=== PATIENT | female | born 1985 | race Caucasian/White ===

== ENCOUNTER 2016-06-27 10:08 | Emergency (ER) | payer SELFPAY ==
[2016-06-27] MEDS ORDERED: CYCLOBENZAPRINE HCL 10 MG TABLET PO ONE (10:20)
[2016-06-27] MEDS ORDERED: KETOROLAC TROMETHAMINE 60 MG/2 ML VIAL IM ONE ×2 (10:20→10:27)
[2016-06-27] MEDS ORDERED: CYCLOBENZAPRINE HCL 10 MG TABLET ONE (10:28)
--- NOTE | 2016-06-27 10:36 | ERNOTE ---
Back Pain ER HPI Date of Service: 06/27/16 Presenting Symptoms: injury/pain to back, hx chronic back pain Time Seen by Provider: 06/27/16 10:18 Source: patient Exam Limitations: no limitations Immunizations: IMMUNIZATION HX Immunizations Up to Date Yes History of Influenza Vaccine No Hx Pneumococcal Vaccination No Allergies/Adverse Reactions: Allergies No Known Allergies Allergy (Verified 06/27/16 10:22) Home Medications: HOME MEDICATIONS Cyclobenzaprine HCl [Flexeril] 10 mg PO TID PRN #30 tab 06/27/16 [Last Taken Unknown] Naproxen [Naprosyn] 500 mg PO BID PRN #60 tab 06/27/16 [Last Taken Unknown] Narrative: Pt. comes in with c/o R back, hip and leg pain with RLE tingling and occasional numbness. Pt. denies any SOB or CP, incontinence of bowel or bladder. Pt. states that she has been seeing a chiropractor for this for months and has also been taking aspirin since her chiropractor told her to switch a month or so ago from naproxen after an exacerbation of sciatica. Review of Systems - Review of Systems Constitutional: Present: no symptoms reported. Absent: fever, chills, weakness , fatigue, malaise EYE: Present: no symptoms reported ENT: Present: no symptoms reported Respiratory: Present: no symptoms reported. Absent: shortness of breath, cough , wheezing Cardiology: Present: no symptoms reported. Absent: chest pain, palpitations, edema Genitourinary: Present: no symptoms reported. Absent: pain, hematuria, decreased urinary output Musculoskeletal: Present: back pain - low, muscle pain - R leg Skin: Present: no symptoms reported Neurological: Present: numbness - R lateral foot, tingling - R leg. Absent: headache, dizziness/light-headedness All Other Systems: All systems neg except as marked - Patient's Past Medical History Patient History - Medical: No pertinent hx Patient History - Cardiac/Respiratory: No pertinent hx Patient History - Cancer: No Hx of Cancer Patient History - Surgical Procedures: No surgical history Patient History - Other: None LMP (females 10-50): 1 month - Social History Living Situations: home Abuse History: No History of abuse Psych History: No pertinent hx Smoking Status: Never smoker Alcohol Use: rarely Drug Use: none - Immunizations Immunizations Up to Date: Yes Hx Pneumococcal Vaccination: No History of Influenza Vaccine: No Physical Exam - Physical Exam General Appearance: Present: wd/wn, alert, no apparent distress Eye Exam: Normal inspection: bilateral, PERRL: bilateral, EOMI: bilateral Ears, Nose, Throat: Present: normal ENT inspection, normal pharynx Neck: Present: normal inspection, nontender, lymphadenopathy (R), lymphadenopathy (L) Respiratory: Present: no respiratory distress, normal breath sounds, no accessory muscle use, chest nontender, lungs clear Cardiovascular/Chest: Present: regular rate, rhythm, no murmur, normal peripheral pulses Gastrointestinal/Abdominal: Present: normal bowel sounds, nontender, nondistended, soft, no organomegaly Back Exam: Present: vertebral tenderness - L3-S1, decreased range of motion, muscle spasm - R parasinous and buttock Extremity Exam: Present: normal inspection, non-tender, normal range of motion, no edema Neurological Exam: Present: alert, oriented, normal mood/affect, no motor/ sensory deficits, 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 Absent: other - numbness Skin Exam: Present: normal color, warm/dry. Absent: pallor, skin rash ED Progress - Date and Time Seen: Date and Time: 06/27/16 10:35 Upon exam pt. without numbness but with decreased sensation and pt. reports numbness and tingling - Vital Signs Patient's Vital Signs:: I have reviewed the patient's vital signs. Vital Signs: Vital Signs 06/27/16 10:16 Temperature 37.1 C Pulse Rate 99 Respiratory 16 Rate Blood Pressure 124/95 O2 Sat by Pulse 100 Oximetry - X-Ray X-Ray #1 X-Ray: lumbosacral Interpretation: Reviewed by me X-ray Comments: L5 S1 DDD no retropulsion or stenosis noted - Progress/Reassessment Progress:: Improved Departure Clinical Impression: Degenerative disc disease at L5-S1 level, Sciatica associated with disorder of lumbosacral spine - Departure Disposition: Home self-care Condition: Good Instructions: Degenerative Disk Disease Additional Instructions: Please follow up with primary provider in 1-2 weeks as you may need injections or further testing for complete sciatica control. Referrals: Darvin Bonilla MD [Primary Care Provider] - Prescriptions: Cyclobenzaprine HCl [Flexeril] 10 mg PO TID PRN #30 tab PRN Reason: MUSCLE SPASMS Naproxen [Naprosyn] 500 mg PO BID PRN #60 tab PRN Reason: Pain
[2016-06-27] MEDS ORDERED: MORPHINE SULFATE 4 MG/ML SYRG IM ONE (11:29)
[2016-06-27] MEDS ORDERED: MORPHINE SULFATE 4 MG/ML SYRG ONE (11:32)
[2016-06-27] MEDS ORDERED: LORazepam 1 MG TABLET PO ONE (12:13)
[2016-06-27] MEDS ORDERED: LORazepam 1 MG TABLET ONE (12:14)
[2016-06-27] MEDS ORDERED: LIDOCAINE 1 PATCH ADH..PATCH TP PRN (12:18)
[2016-06-27 12:25] VITALS: BP 113/86
== END 2016-06-27 13:00 | disposition home or self-care (01) ==
LOC: ER 10:08
DX: M51.17 Intervertebral disc disorders with radiculopathy, lumbosacral region (principal)